=== PATIENT | male | born 1995 | race Caucasian/White ===

== ENCOUNTER 2022-04-26 20:29 | Emergency (ER) | payer SELFPAY ==
[2022-04-26 20:48] VITALS: BP 136/77; PULSE 112; RESP 18; TEMP 36.6; O2SAT 97; BMI 20.9
--- NOTE | 2022-04-26 20:55 | ECG_ITS ---
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 Measurements Intervals [place] Rate: 107 P: 77 NC: 167 QRS: 83 QRSD: 82 T: 42 QT: 308 QTc: 411 Interpretive Statements SINUS TACHYCARDIA POSSIBLE LEFT ATRIAL ENLARGEMENT [-0.1mV P-WAVE IN V1/V2] POSSIBLE RIGHT VENTRICULAR CONDUCTION DELAY [RSR (QR) IN V1/V2] ABNORMAL RHYTHM ECG No previous ECG available for comparison Electronically Signed On 04-27-2022 8:48:59 RAILROAD CAR REPAIRMAN by Jazzy Webster M.D. [id number]
--- NOTE | 2022-04-26 21:50 | XRR_ITS ---
PROCEDURE INFORMATION: Exam: XR Chest Exam date and time: 04/26/2022 9:57 PM Age: 27 years old Clinical indication: Other: Palpitations TECHNIQUE: Imaging protocol: Radiologic exam of the chest. Views: 1 view. COMPARISON: No relevant prior studies available. FINDINGS: Lungs: No CHF/pulmonary edema. Visible lungs appear essentially clear. Pleural spaces: No visible pneumothorax. No definite pleural fluid. Heart/Mediastinum: Heart size is within normal limits. Bones/joints: No significant acute finding. XR/XR chest 1V portable [id number] IMPRESSION: 1. Essentially unremarkable single view chest. 2. Other findings discussed above.
--- NOTE | 2022-04-26 21:53 | USR_ITS ---
PROCEDURE INFORMATION: Exam: US Scrotum and US Duplex Artery and Vein, Scrotum, Complete Exam date and time: 04/26/2022 10:03 PM Age: 27 years old Clinical indication: Scrotum pain; Additional info: Left testicle pain TECHNIQUE: Imaging protocol: Real-time ultrasound of the scrotum. Real-time duplex ultrasound scan of the arterial and venous flow of the scrotum with B-mode, color Doppler flow and spectral waveform analysis. Complete exam. Duplex exam was performed to evaluate for torsion and other vascular conditions. COMPARISON: No relevant prior studies available. FINDINGS: Right: The right testicle measures 32 x 21 x 28 mm, estimated volume 9.9 cc. No visible intratesticular mass. Duplex Doppler evaluation, with color flow and spectral waveform analysis, demonstrates intratesticular arterial and venous blood flow. The right epididymis is normal in size and appearance. There is no significant right scrotal fluid. Left: The left testicle measures 34 x 25 x 28 mm, estimated volume 12.2 cc. No visible intratesticular mass. Duplex Doppler evaluation, with color flow and spectral waveform analysis, demonstrates intratesticular arterial and venous blood flow. The left epididymis is normal in size and appearance. There is no significant left scrotal fluid. US/US scrotum [id number] IMPRESSION: 1. No evidence for torsion by Doppler ultrasound. 2. No findings to suggest epididymitis. 3. Other details discussed above.
--- NOTE | 2022-04-26 22:03 | ED_ITS ---
HPI - Arrhythmia/Palpitations General: Chief Complaint: Arrhythmia/Palpitations Stated Complaint: Tachycardia Time Seen by Provider: 04/26/22 21:49 History of Present Illness: Patient is a 27-year-old male comes to the ED with testicular pain. Patient reports that little over 2 weeks ago he started developing an aching and dull type pain in his left testicle. Symptoms have continued and have not improved. Today he noticed that he was having increased heart rate and some heart palpitations. Denies any chest pain or shortness of breath. Denies any fevers, abdominal pain, nausea/vomiting, dysuria, hematuria, penile lesions, penile discharge, blood in semen, testicular or scrotal swelling. Associated symptoms: Deny nausea or vomiting Review of Systems Const: Denies: fever(s), chills or fatigue Eyes: Denies: change in vision or eye discomfort ENMT: Denies: throat pain, odynophagia, nasal discharge or nasal congestion Card: Denies: chest pain, palpitations, edema, swelling of feet/ankles, dyspnea on exertion or orthopnea Resp: Denies: dyspnea, productive cough or non-productive cough GI: Denies: abdominal pain, nausea, vomiting, diarrhea, constipation or hematochezia : Reports: testicular pain (Left testicle); Denies: flank pain, difficulty urinating, dysuria, hematuria, genital lesions, penile discharge, testicular mass, scrotal swelling or hematospermia Musc: Denies: neck pain, back pain or extremity swelling Skin/Breast: Denies: rash or new lesions Neuro: Denies: headache(s), numbness in extremities or weakness in extremities PFSH ED PFSH: Surgical History No pertinent past surgical history Family History Grandmother Cancer Grandfather Cancer Diabetes Social History Smoking and tobacco status: never smoked Alcohol intake: current Physical Exam Const: COMMON NORMALS: patient oriented x3 HENMT: COMMON NORMALS: normocephalic HEAD & SCALP: normocephalic MOUTH: Normal oral and palatal mucosa present THROAT: posterior oropharynx normal and uvula midline Neck/C-Spine: COMMON NORMALS: supple GENERAL: Yes normal visual inspection Resp: COMMON NORMALS: normal respiratory effort, No retractions, No use of accessory muscles and clear to auscultation bilaterally AUSCULTATION: clear to auscultation bilaterally Cardio: COMMON NORMALS: regular rate, regular rhythm, S1 normal heart sound present, S2 normal heart sound present, No gallops present (Cardio), No clicks present (Cardio), No murmurs present (Cardio) and Peripheral pulses 2+ throughout RATE: regular rate RHYTHM: regular rhythm HEART SOUNDS: S1 normal heart sound present and S2 normal heart sound present PERIPHERAL P ULSES: Peripheral pulses 2+ throughout GI: COMMON NORMALS: Normal to inspection, nondistended, normoactive bowel sounds present, Soft to palpation, non-tender and no masses PALPATION: Yes Soft to palpation : COMMON NORMALS: Yes no CVA tenderness BLADDER/KIDNEY EXAM: Yes no CVA tenderness Back/Pelvis: COMMON NORMALS: no CVA tenderness Neuro: COMMON NORMALS: patient oriented x3 GAIT: Yes Normal gait present Course Vital Signs: Vital signs: Vital Signs Temperature 97.9 F 04/26/22 20:48 Pulse Rate 112 H 04/26/22 20:48 Respiratory Rate 18 04/26/22 20:48 Blood Pressure 136/77 04/26/22 20:48 Pulse Oximetry 97 04/26/22 20:48 MDM - Arrhythmia/Palpitations Medical Decision Making Patient is a 27-year-old male comes to the ED with testicular pain. Patient reports that little over 2 weeks ago he started developing an aching and dull type pain in his left testicle. Symptoms have continued and have not improved. Today he noticed that he was having increased heart rate and some heart palpitations. Denies any chest pain or shortness of breath. Denies any fevers, abdominal pain, nausea/vomiting, dysuria, hematuria, penile lesions, penile discharge, blood in semen, testicular or scrotal swelling. Vitals are stable. Patient appears nontoxic and in no acute distress or pain. Labs are unremarkable. UA shows no signs of UTI. Troponin negative and EKG showed no acute findings. Chest x-ray shows no acute findings. Scrotal ultrasound showed no acute findings. Patient diagnosed with pain in scrotum or testicle. He is stable for discharge home. He was sent home with a prescription for ibuprofen 800 mg to help with pain. Follow-up with PCP in the next week for reevaluation. Return to ED precautions given. Patient understood and agreed with plan. Lab Data I reviewed the patient's lab results. 04/26/22 22:19 04/26/22 22:19 Radiology Impressions Chest X-Ray 04/26/22 21:50 IMPRESSION: 1. Essentially unremarkable single view chest. 2. Other findings discussed above. Scrotum Ultrasound 04/26/22 21:53 IMPRESSION: 1. No evidence for torsion by Doppler ultrasound. 2. No findings to suggest epididymitis. 3. Other details discussed above. Laboratory Results WBC 7.4 10^3/uL (4.0-10.0) 04/26/22 22: RBC 5.17 10^6/uL (4.1-5.3) 04/26/22 22:19 Hgb 15.0 g/dL (11.7-16.6) 04/26/22 22:19 Hct 44.5 % (42.0-52.0) 04/26/22 22:19 MCV 86.1 fl (80-94) 04/26/22 22:19 MCH 29.0 pg (28.0-34.0) 04/26/22 22:19 MCHC 33.7 g/dL (30.0-36.0) 04/26/22 22:19 RDW 11.9 % (12.1-15.1) L 04/26/22 22:19 Plt Count 212 10^3/cmm (130-400) 04/26/22 22:19 MPV 10.5 fL (7.4-10.4) H 04/26/22 22:19 Neut % (Auto) 76.9 % 04/26/22 22:19 Lymph % (Auto) 14.2 % 04/26/22 22:19 [place] % (Auto) 7.6 % 04/26/22 22:19 Eos % (Auto) 0.5 % 04/26/22 22:19 Baso % (Auto) 0.7 % 04/26/22 22:19 Neut # (Auto) 5.68 10^3/uL (1.8-7.7) 04/26/22 22:19 Lymph # (Auto) 1.1 10^3/uL (0.8-4.8) 04/26/22 22:19 [place] # (Auto) 0.6 10^3/uL (0.2-0.9) 04/26/22 22:19 Eos # (Auto) 0.0 10^3/uL (0.0-0.8) 04/26/22 22:19 Baso # (Auto) 0.1 10^3/uL (0.0-0.1) 04/26/22 22:19 Nucleated RBC % (auto) 0 % 04/26/22 22:19 Nucleated RBCs # 0.0 /100WBC 04/26/22 22:19 Sodium 139 mmol/L (136-145) 04/26/22 22:19 Potassium 4.2 mmol/L (3.5-5.1) 04/26/22 22:19 Chloride 102 mmol/L (98-107) 04/26/22 22:19 Carbon Dioxide 23 mmol/L (22-29) 04/26/22 22:19 Anion Gap 18.2 (5-19) 04/26/22 22:19 BUN 8 mg/dL (6-20) 04/26/22 22:19 Creatinine 1.0 mg/dL (0.7-1.2) 04/26/22 22:19 GFR Calculation 89.6 mL/min (90-130) L 04/26/22 22:19 Glucose 116 mg/dL (65-115) H 04/26/22 22:19 Calculated Osmolality 287 mOsm/kg (285-295) 04/26/22 22:19 Calcium 9.6 mg/dL (8.5-10.5) 04/26/22 22:19 Total Bilirubin 0.5 mg/dL (0.15-1.2) 04/26/22 22:19 AST 19 U/L (0-40) 04/26/22 22:19 ALT 11 U/L (0-41) 04/26/22 22:19 Alkaline Phosphatase 102 U/L (40-130) 04/26/22 22:19 Troponin T Baseline 6 ng/L (0-15) 04/26/22 22:19 Total Protein 7.7 g/dL (6.6-8.7) 04/26/22 22:19 Albumin 5.0 g/dL (3.5-5.2) 04/26/22 22:19 Globulin 2.7 g/dL (1.3-4.6) 04/26/22 22:19 Urine Color Colorless (Yellow) 04/26/22 23:12 Urine Appearance Clear (CLEAR) 04/26/22 23:12 Urine pH 7 (5-7) 04/26/22 23:12 Ur Specific [place] 1.005 (1.005-1.030) 04/26/22 23:12 Urine Protein Neg (Negative) 04/26/22 23:12 Urine Glucose (UA) Norm (Normal) 04/26/22 23:12 Urine Ketones Negative (Negative) 04/26/22 23:12 Urine Blood Neg (Negative) 04/26/22 23:12 Urine Nitrate Negative (Negative) 04/26/22 23:12 Urine Bilirubin Neg (Negative) 04/26/22 23:12 Urine Urobilinogen Neg mg/dL (Negative) 04/26/22 23:12 Ur Leukocyte Esterase Negative (Negative) 04/26/22 23:12 Discharge Plan Discharge Patient Disposition: Home Clinical Impression: Pain in scrotum or testicle Condition: Stable Prescriptions: New ibuprofen 800 mg tablet 800 mg PO Q8H PRN (Reason: pain) Qty: 20 0RF Discharge Orders: Discharge ED (Routine); Ordered 04/26/22 Ordered By: Kevin Rudolph Discharge Diet: Regular Discharge Activity: Increase activity as tolerated Patient Instructions: Testicle Pain (ED), Scrotal Pain (ED) Activity Restrictions/Additional Instructions: Follow-up with medical provider as directed in the next 5 to 7 days for reeva luation. Take medications as prescribed. Return to the ER or your medical provider if condition worsens. Please read and understand discharge instructions. Thank you for choosing [facility] for your healthcare needs today. Please realize this is an emergency room and that we are providing you with a medical screening exam and this may not be complete and all inclusive of all the testing and or work up that you may need to determine your ailment or severity of your illness. It is very important that you follow up as instructed or that you return to the Emergency Department should you have concerns or if your condition changes or worsens in any way. Coding Level of Care Code ED Trial Manager for Navya Fwjennifer Exam Comprehensive
[2022-04-26 22:30] LABS: Basophils # 0.1 10^3/uL (0.0-0.1); Basophils % 0.7 %; Eosinophils % 0.5 %; Hematocrit 44.5 % (42.0-52.0); Lymphocytes # 1.1 10^3/uL (0.8-4.8); Lymphocytes % 14.2 %; Mean Corpuscular HGB Conc 33.7 g/dL (30.0-36.0); Mean Corpuscular Volume 86.1 fl (80-94); Mean Platelet Volume 10.5 fL (7.4-10.4); Monocytes # 0.6 10^3/uL (0.2-0.9); Monocytes % 7.6 %; Neutrophils # 5.68 10^3/uL (1.8-7.7); Neutrophils % 76.9 %; Nucleated Red Blood Cells % 0 %; Platelet Count 212 10^3/cmm (130-400); Red Blood Count 5.17 10^6/uL (4.1-5.3); Red Cell Distribution Width 11.9 % (12.1-15.1); White Blood Count 7.4 10^3/uL (4.0-10.0)
[2022-04-26 22:51] LABS: Troponin(5th) Baseline 6 ng/L (0-15)
[2022-04-26 22:52] LABS: Alanine Aminotransferase 11 U/L (0-41); Alkaline Phosphatase 102 U/L (40-130); Anion Gap 18.2 (5-19); Aspartate Amino Transferase 19 U/L (0-40); Blood Urea Nitrogen 8 mg/dL (6-20); Calcium 9.6 mg/dL (8.5-10.5); Carbon Dioxide 23 mmol/L (22-29); Chloride 102 mmol/L (98-107); Creatinine Clr Calc Pharmacy 113.6209; Globulin 2.7 g/dL (1.3-4.6); Glomerular Filtration Rate 89.6 mL/min (90-130); Glucose 116 mg/dL (65-115); Osmolality Calculated 287 mOsm/kg (285-295); Potassium 4.2 mmol/L (3.5-5.1); Sodium 139 mmol/L (136-145); Total Bilirubin 0.5 mg/dL (0.15-1.2); Total Protein 7.7 g/dL (6.6-8.7)
[2022-04-26 23:22] LABS: Add Urine Microscopic? NO; Charge for UA Resulting for Rev
[2022-04-26 23:32] LABS: Bilirubin Urine Neg (Negative); Blood Urine Neg (Negative); Glucose Urine UA Norm (Normal); Ketones Urine Negative (Negative); Leukocyte Esterase Urine Negative (Negative); Nitrate Urine Negative (Negative); Protein Urine Neg (Negative); Specific Gravity, Urine 1.005 (1.005-1.030); Urine Appearance Clear (CLEAR); Urine Color Colorless (Yellow); Urobilinogen Urine Neg (Negative); pH Urine 7 (5-7)
== END 2022-04-27 00:04 | disposition home or self-care (01) ==
PROVIDERS: Emergency Provider Physician Assistant
DX: N50.82 Scrotal pain (principal); N50.812 Left testicular pain
CPT/HCPCS: 71045; 76870; 80053; 81003; 84484; 85025; 93005; 99285

== ENCOUNTER 2022-09-17 15:09 | Emergency (ER) | payer SELFPAY ==
[2022-09-17 15:18] VITALS: BP 142/79; PULSE 102; RESP 16; TEMP 36.7; O2SAT 98; BMI 20.9
[2022-09-17] MEDS: diphenhydrAMINE 50 mg Capsule PO (15:50)
[2022-09-17] MEDS: methylPREDNISolone (DEPO) 80 MG/ML INJ 1 mL IM (15:50)
--- NOTE | 2022-09-17 15:51 | ED_ITS ---
HPI - Allergic Reaction General: Chief complaint: Allergic Reaction Stated complaint: throat swelling Time Seen by Provider: 09/17/22 15:35 History of Present Illness: HPI narrative: Patient is a 27-year-old male comes to the ED with allergic reaction. Appro ximately an hour ago patient was spraying some herbicide and then he started noticing some bilateral neck swelling and redness. Patient said he has been exposed to this herbicide before and has never had this kind of reaction. Denies any pruritic rash, throat tightening or, trouble breathing, lip or tongue swelling, nausea or vomiting. Associated symptoms: Deny abdominal pain, nausea or vomiting Review of Systems Const: Denies: fever(s), chills or fatigue Eyes: Denies: change in vision or eye discomfort ENMT: Denies: throat pain, odynophagia, nasal discharge or nasal congestion Card: Denies: chest pain, palpitations, edema, swelling of feet/ankles, dyspnea on exertion or orthopnea Resp: Denies: dyspnea, productive cough or non-productive cough GI: Denies: abdominal pain, nausea, vomiting, diarrhea, constipation or hematochezia : Denies: flank pain, difficulty urinating, dysuria or hematuria Musc: Denies: neck pain, back pain or extremity swelling Skin/Breast: Reports: rash (Rash on neck); Denies: new lesions Neuro: Denies: headache(s), numbness in extremities or weakness in extremities PFSH ED PFSH: Surgical History No pertinent past surgical history Family History Grandmother Cancer Grandfather Cancer Diabetes Social History Smoking and tobacco status: never smoked Alcohol intake: current Substance/Drug Use: never Physical Exam Const: COMMON NORMALS: no acute distress, patient oriented x3, healthy appearing and alert HENMT: COMMON NORMALS: normocephalic HEAD & SCALP: normocephalic MOUTH: Normal oral and palatal mucosa present THROAT: posterior oropharynx normal and uvula midline Neck/C-Spine: COMMON NORMALS: supple GENERAL: Yes normal visual inspection Lymph: LYMPHATIC: lymphadenopathy bilateral anterior cervical multiple, small and soft; not warm and nontender 1 cm Resp: COMMON NORMALS: normal respiratory effort, No retractions, No use of accessory muscles and clear to auscultation bilaterally AUSCULTATION: clear to auscultation bilaterally Cardio: COMMON NORMALS: regular rate, regular rhythm, S1 normal heart sound present, S2 normal heart sound present, No gallops present (Cardio), No clicks present (Cardio), No murmurs present (Cardio) and Peripheral pulses 2+ throughout RATE: regular rate RHYTHM: regular rhythm HEART SOUNDS: S1 normal heart sound present and S2 normal heart sound present PERIPHERAL PULSES: Peripheral pulses 2+ throughout GI: COMMON NORMALS: Normal to inspection, nondistended, normoactive bowel soun ds present, Soft to palpation, non-tender and no masses PALPATION: Yes Soft to palpation : COMMON NORMALS: Yes no CVA tenderness BLADDER/KIDNEY EXAM: Yes no CVA tenderness Back/Pelvis: COMMON NORMALS: no CVA tenderness Extremity: COMMON NORMALS: normal to inspection Neuro: COMMON NORMALS: patient oriented x3 SENSORIUM/ORIENTATION: Yes alert GAIT: Yes Normal gait present Skin: GENERAL SKIN EXAM: dry skin Course Vital Signs: Vital signs: Vital Signs Temperature 98.0 F 09/17/22 15:18 Pulse Rate 102 H 09/17/22 15:18 Respiratory Rate 16 09/17/22 15:18 Blood Pressure 142/79 09/17/22 15:18 Pulse Oximetry 98 09/17/22 15:18 Oxygen Delivery Me thod Room Air 09/17/22 15:18 MDM - Allergic Reaction Medical Decision Making Patient is a 27-year-old male comes to the ED with allergic reaction. Approximately an hour ago patient was spraying some herbicide and then he started noticing some bilateral neck swelling and redness. Patient said he has been exposed to this herbicide before and has never had this kind of reaction. Denies any pruritic rash, throat tightening or, trouble breathing, lip or tongue swelling, nausea or vomiting. Vitals are stable. Patient appears nontoxic in no acute distress or pain. Exam shows some palpable lymph nodes in anterior cervical chain bilaterally. No tenderness or erythema noted. No lip or tongue swelling or rash noted. Lymph node swelling likely reactionary. Rest of exam is benign. Patient was given dose of Depo-Medrol and Benadryl here in the ED and then stable for discharge home. He is diagnosed with allergic reaction and was discharged home with a prescription for prednisone. Told to follow-up with his PCP in the next week for reevaluation. Return to ED precautions given. Patient understood and agreed with plan. Discharge Plan Discharge Patient Disposition: Home Clinical Impression: Allergic reaction Condition: Stable Prescriptions: New prednisone 20 mg tablet 20 mg PO BID 3 Days Qty: 6 0RF No Action ibuprofen 800 mg tablet 800 mg PO Q8H PRN (Reason: pain) Qty: 20 0RF Discharge Orders: Discharge ED (Routine); Ordered 09/17/22 Ordered By: Kevin Rudolph Discharge Diet: Regular Discharge Activity: Resume usual activity Patient Instructions: Allergic Reaction Activity Restrictions/Additional Instructions: Follow-up with medical provider as directed in the next 5 to 7 days for reevaluation. Take medications as prescribed. Return to the ER or your medical provider if condition worsens. Please read and understand discharge instructions. Thank you for choosing [facility] for your healthcare needs today. Please realize this is an emergency room and that we are providing you with a medical screening exam and this may not be complete and all inclusive of all the testing and or work up that you may need to determine your ailment or severity of your illness. It is very important that you follow up as instructed or that you return to the Emergency Department should you have concerns or if your condition changes or worsens in any way. Coding Level of Care Code ED Scientist Electronics for Navya Colmenares
== END 2022-09-17 16:45 | disposition home or self-care (01) ==
PROVIDERS: Emergency Provider Physician Assistant
DX: T78.40XA Allergy, unspecified, initial encounter (principal)
CPT/HCPCS: 96372; 99284; J1040; Q0163

== ENCOUNTER 2022-09-17 17:10 | Emergency (ER) | payer SELFPAY ==
[2022-09-17 17:18] VITALS: BP 124/77; PULSE 95; RESP 18; TEMP 36.7; O2SAT 98; BMI 20.9
--- NOTE | 2022-09-17 17:35 | W.ED.ALLEREA ---
HPI - Allergic Reaction General: Chief complaint: Airway/Esophagus Foreign Body Stated complaint: Hard to swallow now Time Seen by Provider: 09/17/22 17:34 History of Present Illness: HPI narrative: 27-year-old male patient comes in today for complaints of exposure to herbicide. Patient reported some mild swelling to his neck that he was concerned about. Patient also felt like he had a lump in his throat. Patient appears nontoxic. No hives are noted. Skin is warm and dry. There is some redness to his neck. Vital signs are normal. Patient had been here about 30 minutes prior to this arrival and was treated with Solu-Medrol and diphenhydramine. Review of Systems Const: Denies: fever(s) ENMT: Reports: throat pain PFSH ED PFSH: Surgical History No pertinent past surgical history Family History Grandmother Cancer Grandfather Cancer Diabetes Social History Smoking and tobacco status: never smoked Alcohol intake: current Substance/Drug Use: never Physical Exam Const: COMMON NORMALS: alert HENMT: COMMON NORMALS: normocephalic HEAD & SCALP: normocephalic MOUTH: Normal oral and palatal mucosa present THROAT: posterior oropharynx abnormal Neck/C-Spine: GENERAL: Yes normal visual inspection Resp: COMMON NORMALS: normal respiratory effort AUSCULTATION: wheezes GI: COMMON NORMALS: non-tender Extremity: COMMON NORMALS: no pedal edema Neuro: SENSORIUM/ORIENTATION: Yes alert Skin: NARRATIVE SKIN EXAM: Mild redness to the neck. Course Vital Signs: Vital signs: Vital Signs Temperature 98.1 F 09/17/22 17:18 Pulse Rate 95 09/17/22 17:18 Respiratory Rate 18 09/17/22 17:18 Blood Pressure 124/77 09/17/22 17:18 Pulse Oximetry 98 09/17/22 17:18 MDM - Allergic Reaction Medical Decision Making 27-year-old male patient comes in with some complaints of throat discomfort after exposure to herbicide. Patient was given diphenhydramine 50 mg and 80 mg of Depo-Medrol about half an hour prior to arrival. On exam posterior pharynx is pink and moist with no asymmetry. Patient is managing secretions well. No hives are noted. Patient was concerned there might be some swelling in his neck but visual inspection notes no abnormalities. Differential diagnosis includes but not limited to contact dermatitis, allergic reaction, anaphylaxis, chemical irritation of the larynx. Reviewed exam with patient recommend an injection for epinephrine to help with his discomfort. Patient refused to wanting to give the steroid shot more time to work after discussion about how often it takes for it to become effective. Recommended patient go home and shower off good drink plenty of water and continue with medications as prescribed. Patient reported understanding and agreed to plan. Patient was stable and no signs of distress was noted. Discharge Plan Discharge Patient Disposition: Home Clinical Impression: Accidental exposure to phenoxyacid derivative herbicide Condition: Stable Prescriptions: No Action ibuprofen 800 mg tablet 800 mg PO Q8H PRN (Reason: pain) Qty: 20 0RF prednisone 20 mg tablet 20 mg PO BID 3 Days Qty: 6 0RF Discharge Orders: Discharge ED (Routine); Ordered 09/17/22 Ordered By: Irvin Montelongo Discharge Diet: Usual diet Discharge Activity: Increase activity as tolerated Activity Restrictions/Additional Instructions: Follow-up with primary care. Return to ER for worsening symptoms or new concerns. Coding Level of Care Code ED Transformer Stock Clerk for Navya Colmenares
--- NOTE | 2022-09-17 17:49 | PC.NURSE ---
PT CO INHALATION OF HERBICIDE PT DENIES ANY SOB OR TROUBLE BREATHING. PT IS AWAKE ALERT AND ANSWERING QUESTIONS APPROPRIATELY. BREATHING IS NONLABORED. RATE AND RHYTHM ARE WNL.
== END 2022-09-17 17:51 | disposition home or self-care (01) ==
PROVIDERS: Emergency Provider Nurse Practitioner Family
DX: Z77.098 Contact with and (suspected) exposure to other hazardous, chiefly nonmedicinal, chemicals (principal)
CPT/HCPCS: 99282

== ENCOUNTER 2022-09-20 18:37 | Emergency (ER) | payer SELFPAY ==
[2022-09-20 18:42] VITALS: BP 140/83; PULSE 81; RESP 16; TEMP 36.9; O2SAT 100; BMI 20.9
--- NOTE | 2022-09-20 19:37 | ECG_ITS ---
[facility] Test Date: 2022-09-20 Pat Name: Jose Dee Department: Room: Gender: Male [employer] Manager: : 1995 Requested By: Kevin Rudolph Order Number: [id number] Cifuentes MD: Wilber Vázquez M.D. Measurements Intervals [place] Rate: 64 P: 45 OR: 179 QRS: 71 QRSD: 88 T: 45 QT: 365 QTc: 377 Interpretive Statements SINUS RHYTHM WITH SINUS ARRHYTHMIA POSSIBLE RIGHT VENTRICULAR CONDUCTION DELAY [RSR (QR) IN V1/V2] Compared to ECG 04/26/2022 20:55:39 Sinus tachycardia no longer present Electronically Signed On 09-21-2022 5:59:20 CDT by Wilber Vázquez M.D. [id number]
--- NOTE | 2022-09-20 19:40 | ED_ITS ---
HPI - Neck Pain/Injury General: Chief Complaint: Neck Pain/Injury Stated Complaint: neck pain Time Seen by Provider: 09/20/22 19:03 History of Present Illness: Patient is a 27-year-old male comes to the ED with right-sided neck pain. He was seen here in the ED twice back on September 17 for bilateral neck swelling. Denies any injury or trauma. Today patient said he was having really bad pain on the right side of his neck. Right side of neck is tender and he rates his pain 8 out of 10. Pain worsens when he abducts his right arm or if he rotates or flexes his head to the left. He has had multiple episodes of anxiety and chest pain for the last 2 days. Patient says he does have a history of anxiety and since his recent neck issues he is having increased episodes. Denies any current chest pain. Associated symptoms: Denies headache(s) or nausea Review of Systems Const: Denies: fever(s), chills or fatigue Eyes: Denies: change in vision or eye discomfort ENMT: Denies: throat pain, odynophagia, nasal discharge or nasal congestion Card: Reports: chest pain (Multiple episodes of chest pain and anxiety over the last 2 days.); Denies: palpitations, edema, swelling of feet/ankles, dyspnea on exertion or orthopnea Resp: Denies: dyspnea, productive cough or non-productive cough GI: Denies: abdominal pain, nausea, vomiting, diarrhea, constipation or hematochezia : Denies: flank pain, difficulty urinating, dysuria or hematuria Musc: Reports: neck pain; Denies: back pain or extremity swelling Skin/Breast: Denies: rash or new lesions Neuro: Denies: headache(s), numbness in extremities or weakness in extremities PFS ED PFSH: Surgical History No pertinent past surgical history Family History Grandmother Cancer Grandfather Cancer Diabetes Social History Smoking and tobacco status: never smoked Alcohol intake: current Substance/Drug Use: never Physical Exam Const: COMMON NORMALS: no acute distress, patient oriented x3 and alert GENERAL APPEARANCE: cooperative and anxious HENMT: COMMON NORMALS: normocephalic HEAD & SCALP: normocephalic MOUTH: Normal oral and palatal mucosa present THROAT: posterior oropharynx normal and uvula midline Neck/C-Spine: COMMON NORMALS: supple GENERAL: Yes normal visual inspection CERVICAL SPINE: Yes pain with cervical ROM with lateral flexion to the left and with rotation to the left, No Cervical spine tenderness, Yes Paracervical muscle tenderness right and Yes Trapezius muscle tenderness right Resp: COMMON NORMALS: normal respiratory effort, No retractions, No use of accessory muscles and clear to auscultation bilaterally AUSCULTATION: clear to auscultation bilaterally Cardio: COMMON NORMALS: regular rate, regular rhythm, S1 normal heart sound present, S2 normal heart sound present, No gallops present (Cardio), No clicks present (Cardio), No murmurs present (Cardio) and Peripheral pulses 2+ throughout RATE: regular rate RHYTHM: regular rhythm HEART SOUNDS: S1 normal heart sound present and S2 normal heart sound present PERIPHERAL PULSES: Peripheral pulses 2+ throughout GI: COMMON NORMALS: Normal to inspection, nondistended, normoactive bowel sounds present, Soft to palpation, non-tender and no masses PALPATION: Yes Soft to palpation : COMMON NORMALS: Yes no CVA tenderness BLADDER/KIDNEY EXAM: Yes no CVA tenderness Back/Pelvis: COMMON NORMALS: no CVA tenderness Extremity: COMMON NORMALS: normal to inspection Neuro: COMMON NORMALS: patient oriented x3 SENSORIUM/ORIENTATION: Yes alert GAIT: Yes Normal gait present Skin: GENERAL SKIN EXAM: dry skin Course Vital Signs: Vital signs: Vital Signs Temperature 98.4 F 09/20/22 18:42 Pulse Rate 81 09/20/22 18:42 Respiratory Rate 16 09/20/22 18:42 Blood Pressure 140/83 09/20/22 18:42 Pulse Oximetry 100 09/20/22 18:42 Oxygen Delivery Me thod Room Air 09/20/22 18:42 MDM - Neck Pain/Injury Medical Decision Making Patient is a 27-year-old male comes to the ED with right-sided neck pain. He was seen here in the ED twice back on September 17 for bilateral neck swelling. Denies any injury or trauma. Today patient said he was having really bad pain on the right side of his neck. Right side of neck is tender and he rates his pain 8 out of 10. Pain worsens when he abducts his right arm or if he rotates or flexes his head to the left. He has had multiple episodes of anxiety and emmy st pain for the last 2 days. Patient says he does have a history of anxiety and since his recent neck issues he is having increased episodes. Denies any current chest pain. Vitals are stable. Patient appears nontoxic in no acute distress or pain. He does appear anxious. He is some right paracervical muscle tenderness along with right trapezius muscle tenderness. Right-sided neck pain with lateral flexion to the left and rotation to the left. Rest of exam is benign. CBC and BMP are unremarkable. Baseline troponin 6 and EKG showed normal sinus rhythm with no ST segment elevation or depression seen in a rate of 64 bpm. He was given a dose of Toradol and muscle relaxer here in the ED. He was stable for discharge home and diagnosed with neck muscle strain and anxiety. Told to follow-up with his PCP in the next week for reevaluation. He was sent home with a prescription for an NSAID and muscle relaxer. Return ED precautions given. Patient understood and agreed with plan. Lab Data I reviewed the patient's lab results. 09/20/22 19:43 09/20/22 19:43 Laboratory Results WBC 6.6 10^3/uL (4.0-10.0) 09/20/22 19:43 RBC 4.65 10^6/uL (4.1-5.3) 09/20/22 19:43 Hgb 13.8 g/dL (11.7-16.6) 09/20/22 19:43 Hct 41.0 % (42.0-52.0) L 09/20/22 19:43 MCV 88.2 fl (80-94) 09/20/22 19:43 MCH 29.7 pg (28.0-34.0) 09/20/22 19:43 MCHC 33.7 g/dL (30.0-36.0) 09/20/22 19:43 RDW 12.1 % (12.1-15.1) 09/20/22 19:43 Plt Count 152 10^3/cmm (130-400) 09/20/22 19:43 MPV 10.1 fL (7.4-10.4) 09/20/22 19:43 Neut % (Auto) 60.8 % 09/20/22 19:43 Lymph % (Auto) 26.9 % 09/20/22 19:43 [place] % (Auto) 10.6 % 09/20/22 19:43 Eos % (Auto) 0.5 % 09/20/22 19:43 Baso % (Auto) 0.9 % 09/20/22 19:43 Neut # (Auto) 4.00 10^3/uL (1.8-7.7) 09/20/22 19:43 Lymph # (Auto) 1.8 10^3/uL (0.8-4.8) 09/20/22 19:43 [place] # (Auto) 0.7 10^3/uL (0.2-0.9) 09/20/22 19:43 Eos # (Auto) 0.0 10^3/uL (0.0-0.8) 09/20/22 19:43 Baso # (Auto) 0.1 10^3/uL (0.0-0.1) 09/20/22 19:43 Nucleated RBC % (auto) 0 % 09/20/22 19:43 Nucleated RBCs # 0.0 /100WBC 09/20/22 19:43 Sodium 138 mmol/L (136-145) 09/20/22 19:43 Potassium 3.8 mmol/L (3.5-5.1) 09/20/22 19:43 Chloride 101 mmol/L (98-107) 09/20/22 19:43 Carbon Dioxide 24 mmol/L (22-29) 09/20/22 19:43 Anion Gap 16.8 (5-19) 09/20/22 19:43 BUN 15 mg/dL (6-20) 09/20/22 19:43 Creatinine 1.1 mg/dL (0.7-1.2) 09/20/22 19:43 GFR Calculation 80.3 mL/min (90-130) L 09/20/22 19:43 Glucose 93 mg/dL (65-115) 09/20/22 19:43 Calculated Osmolality 287 mOsm/kg (285-295) 09/20/22 19:43 Calcium 8.9 mg/dL (8.5-10.5) 09/20/22 19:43 Troponin T Gen 5 ng/L 6 ng/L (0-15) 09/20/22 19:43 EKG Data EKG 1: EKG interpretation date: 09/20/22 Interpretation: Sinus rhythm, no ST segment elevation or depression seen, 64 bpm. Discharge Plan Discharge Patient Disposition: Home Clinical Impression: Neck muscle strain, Anxiety Condition: Stable Prescriptions: New Celebrex 100 mg capsule 100 mg PO BID PRN (Reason: pain) Qty: 20 0RF methocarbamol 750 mg tablet 750 mg PO Q8H PRN (Reason: Muscle spasms and pain) Qty: 20 0RF No Action ibuprofen 800 mg tablet 800 mg PO Q8H PRN (Reason: pain) Qty: 20 0RF Discharge Orders: Discharge ED (Routine); Ordered 09/20/22 Ordered By: Kevin Rudolph Discharge Diet: Regular Discharge Activity: Increase activity as tolerated Patient Instructions: Neck Pain (ED) Activity Restrictions/Additional Instructions: Follow-up with medical provider as directed in the next 5 to 7 days for reevaluation. Take medications as prescribed. Do not neck stretches daily. Apply cold pack on sore area of neck to help with symptoms as well. Return to the ER or your medical provider if condition worsens. Please read and understand discharge instructions. Thank you for choosing [facility] for your healthcare needs today. Please realize this is an emergency room and that we are providing you with a medical screening exam and this may not be complete and all inclusive of all the testing and or work up that you may need to determine your ailment or severity of your illness. It is very important that you follow up as instructed or that you return to the Emergency Department should you have concerns or if your condition changes or worsens in any way. Stand Alone Forms: Work/School Release Coding Level of Care Code ED [employer] for [employer]
[2022-09-20] MEDS: methocarbamol 750 mg Tablet PO (19:43)
[2022-09-20] MEDS: ketorolac 60 mg/2 mL INJ IM (19:43)
[2022-09-20 19:48] LABS: Basophils # 0.1 10^3/uL (0.0-0.1); Basophils % 0.9 %; Eosinophils % 0.5 %; Hemoglobin 13.8 g/dL (11.7-16.6); Lymphocytes # 1.8 10^3/uL (0.8-4.8); Lymphocytes % 26.9 %; Mean Corpuscular HGB Conc 33.7 g/dL (30.0-36.0); Mean Corpuscular Hemoglobin 29.7 pg (28.0-34.0); Mean Corpuscular Volume 88.2 fl (80-94); Mean Platelet Volume 10.1 fL (7.4-10.4); Monocytes # 0.7 10^3/uL (0.2-0.9); Monocytes % 10.6 %; Neutrophils % 60.8 %; Nucleated Red Blood Cells % 0 %; Platelet Count 152 10^3/cmm (130-400); Red Blood Count 4.65 10^6/uL (4.1-5.3); Red Cell Distribution Width 12.1 % (12.1-15.1); White Blood Count 6.6 10^3/uL (4.0-10.0)
[2022-09-20 20:06] LABS: Troponin T (5th) Once 6 ng/L (0-15)
[2022-09-20 20:07] LABS: Anion Gap 16.8 (5-19); Blood Urea Nitrogen 15 mg/dL (6-20); Calcium 8.9 mg/dL (8.5-10.5); Carbon Dioxide 24 mmol/L (22-29); Chloride 101 mmol/L (98-107); Glomerular Filtration Rate 80.3 mL/min (90-130); Glucose 93 mg/dL (65-115); Osmolality Calculated 287 mOsm/kg (285-295); Potassium 3.8 mmol/L (3.5-5.1); Sodium 138 mmol/L (136-145)
== END 2022-09-20 21:03 | disposition home or self-care (01) ==
PROVIDERS: Emergency Provider Physician Assistant
DX: S16.1XXA Strain of muscle, fascia and tendon at neck level, initial encounter (principal); F41.9 Anxiety disorder, unspecified; X58.XXXA Exposure to other specified factors, initial encounter
CPT/HCPCS: 36415; 80048; 84484; 85025; 93005; 96372; 99284; J1885

== ENCOUNTER → 2022-10-14 16:51 | Outpatient (BNVA) | payer SELFPAY | PROVIDERS: Visit Provider Nurse Practitioner Family | DX: R53.83 Other fatigue (principal) | CPT/HCPCS: 80053; 85025 ==